=== PATIENT | female | born 2000 | race Caucasian/White ===

== ENCOUNTER 2021-04-11 21:51 | Emergency (ER) | payer OTHER ==
[2021-04-11 21:57] VITALS: RESP 18; TEMP 97.4
[2021-04-11 23:41] LABS: Appearance,Urine Clear (Clear); Bacteria,Urine Rare /hpf; Bilirubin,Urine Negative (Negative); Blood,Urine Large (Negative); Color,Urine Yellow; Glucose,Urine (UA) Negative (Negative); Ketones,Urine Negative (Negative); Leukocyte Esterase,Urine Negative (Negative); Mucus,Urine Moderate /hpf; Nitrite,Urine Negative (Negative); Protein,Urine Trace (Negative); RBC,Urine 12 /hpf (0-5); Specific Gravity,Urine 1.036 (1.001-1.035); Squamous Epithelial Cell,Urine 3 /hpf (0-4); Urobilinogen,Urine <2.0 mg/dL (<2.0); WBC,Urine 2 /hpf (0-5)
[2021-04-12] MEDS ORDERED: IBUPROFEN 400 MG TAB PO STA (00:10)
[2021-04-12 00:57] VITALS: PULSE 74
[2021-04-12 01:14] LABS: Basophils % (A) 0 %; Eosinophils # (A) 0.4 k/uL (0-0.7); Eosinophils % (A) 4 %; HCT 40.9 % (34.0-46.0); HGB 13.8 gm/dL (11.4-16.0); Lymphocytes # (A) 2.6 k/uL (1.0-4.8); Lymphocytes % (A) 27 %; MCH 32.1 pg (25.0-35.0); MCHC 33.6 g/dL (31.0-37.0); MCV 95.4 fL (80.0-100.0); Mean Platelet Volume 7.5; Monocytes # (A) 0.7 k/uL (0-1.0); Monocytes % (A) 7 %; Neutrophils # (A) 5.9 k/uL (1.3-7.7); Neutrophils % (A) 59 %; Platelet Count 311 k/uL (150-450); RBC 4.29 m/uL (3.80-5.40); RDW 12.4 % (11.5-15.5); WBC 9.9 k/uL (4.0-11.0)
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
[2021-04-12 01:37] VITALS: BP 91/66
[2021-04-12 01:44] LABS: ALT 19 U/L (4-34); AST 25 U/L (14-36); African American GFR (CKD) >90 (>60 ml/min/1.73 sqM); Albumin 4.7 g/dL (3.5-5.0); Alkaline Phosphatase 46 U/L (38-126); Anion Gap 8 mmol/L; Blood Urea Nitrogen 17 mg/dL (7-17); Calcium 9.9 mg/dL (8.4-10.2); Carbon Dioxide 26 mmol/L (22-30); Chloride 107 mmol/L (98-107); Glucose 81 mg/dL (74-99); Non-African American GFR(CKD) >90 (>60 ml/min/1.73 sqM); Potassium 4.2 mmol/L (3.5-5.1); Sodium 141 mmol/L (137-145); Total Bilirubin 0.3 mg/dL (0.2-1.3)
== END 2021-04-12 01:36 | disposition home or self-care (01) ==
LOC: EC 21:51
DX: N83.209 Unspecified ovarian cyst, unspecified side (principal); F12.90 Cannabis use, unspecified, uncomplicated; Z88.0 Allergy status to penicillin; V43.62XA Car passenger injured in collision with other type car in traffic accident, initial encounter; Y92.481 Parking lot as the place of occurrence of the external cause
CPT/HCPCS: 36415; 86900; 86901; 80053; 83605; 85025; 86850; 81001; 81025; 74177; 99285; Q9967

== ENCOUNTER → 2021-10-11 | Outpatient (CLI) | payer BC ==
--- NOTE | 2021-10-11 11:45 | US ---
EXAMINATION TYPE: US pelvic complete DATE OF EXAM: 10/11/2021 COMPARISON: CT 04/12/2021 CLINICAL HISTORY: N83.0 Right ovarian cyst. Large probable right ovarian cyst seen on previous CT. TECHNIQUE: Transabdominal (TA). Date of LMP: 09/27/2021 EXAM MEASUREMENTS: Uterus: 6.1 x 2.9 x 4.2 cm Endometrial Stripe: Not well delineated Right Ovary: Indistinct borders. Left Ovary: 4.6 x 3.5 x 2.8 cm 1. Uterus: Anteverted 2. Endometrium: Not well delineated 3. Right Ovary: Large cystic area with septations right adnexa measuring 17.0 x 8.4 x 17.1 cm; venou s and arterial flow seen. 4. Left Ovary: Appears wnl Spectral, color and waveform doppler imaging shows good arterial and venous flow within the right o vary; 5. Bilateral Adnexa: As noted above 6. Posterior cul-de-sac: wnl Somewhat small uterus redemonstrated. Endometrial stripe not well seen presumed within normal limits. No free fluid. Normal size left ovary. Abnormal right ovarian lesion difficult to accurately measure due to size devonte suring approximately 17.0 x 8.4 x 17.1 cm. Fairly smooth inner wall with multi locular involvement du e to thin septa, no distinct solid component or significant color flow. No unexplained ascites. IMPRESSION: There is 17.1 cm right ovarian cystic lesion felt increased in size from prior CT. O-RADS 4 intermediate risk. Advise gynecology oncology consultation. Consider MRI evaluation based on consultation and lab workup.
== END | disposition home or self-care (01) ==
LOC: RADUSWWP 10:49
PROVIDERS: ATTEND Obstetrics & Gynecology
DX: N83.201 Unspecified ovarian cyst, right side (principal)
CPT/HCPCS: 76856